=== PATIENT | female | born 1985 | race Caucasian/White ===

== ENCOUNTER 2023-11-26 13:55 | Observation (INO) | payer OTHER ==
[~2023-11-26] VITALS: Ht 157.5 cm; Wt 51.3 kg
[2023-11-26] VITALS (11 sets, daily range): BP systolic 97–126; BP diastolic 59–87; PULSE 82–97; TEMP 97.5–98.5
--- NOTE | 2023-11-26 14:00 | NUR ---
PATIENT DIRECT ADMIT FROM [facility] INTO ROOM 347 WITH KIDNEY STONE AND REPORTED PYELONEPHRITIS. A&O. VSS. PATIENT REPORTS PRESENTING TO THE [facility] TWICE, FRIDAY & FRIDAY BEFORE GOING TO HER PCP TODAY. CONTACTED [facility] FOR RECORDS. PATIENT ALSO REPORTS CARDIAC HX OF MITRAL VALVE PROLAPSE AT 15 Y/O AND SECONDARY CHF WHICH IS NOW WELL MANAGED. STARTED 22 GAUZE IV INTO LEFT HAND TO INT. NPO FOR PENDING SURGERY. HEAD TO TOE ASSESSMENT COMPLETE. ORIENTED TO ROOM. CALL LIGHT IN REACH.
[2023-11-26] MEDS ORDERED: ZOFRAN ODT4 MG PO (14:47)
[2023-11-26] MEDS ORDERED: CEPHALEXIN500 M1 PO (14:47)
[2023-11-26] MEDS ORDERED: PERCOCET 325 MG1 TA2 PO (14:47)
[2023-11-26] MEDS ORDERED: SYNTHROID0.05 MG/TA PO (14:48)
[2023-11-26] MEDS ORDERED: ADDERALL20 MG PO (14:48)
[2023-11-26] MEDS ORDERED: BUSPAR5 MG PO (14:49)
--- NOTE | 2023-11-26 16:30 | NUR ---
AT BEDSIDE. CONSENT OBTAINED. RECORDS FROM [facility] INCLUDING NEGATICE HCG ON CHART. SURGEON AND OR TEAM AWARE OF CARDIAC HX. IV FLUIDS HOOKED UP BUT NOT INFUSING YET. NPO. UA OBTAINED AND SENT TO LAB. PATIENT NOW GOING DOWN TO OR VIA BED WITH AT BEDSIDE.
[2023-11-26 17:15] LABS: COLLECTION METHOD CLEAN CATCH; URINE APPEARANCE Clear (CLEAR/HAZY); URINE BLOOD TRACE-LYSED (NEGATIVE); URINE COLOR Yellow (YELLOW); URINE GLUCOSE Negative (NEGATIVE); URINE KETONE 1+ (NEGATIVE); URINE NITRATE Negative (NEGATIVE); URINE PROTEIN(semi-quant) Negative (NEGATIVE); URINE UROBILINOGEN 0.2 E.U/dL (0.2-1.0)
[2023-11-26 17:32] LABS: SQUAMOUS EPITHELIAL 0-2 /hpf (0-10); URINE BACTERIA None Seen /hpf (NONE SEEN); URINE RBC 0-2 /hpf (0-2)
--- NOTE | 2023-11-26 17:55 | NUR ---
PATIENT BACK IN ROOM. AT BEDSIDE. VSS. NO COMPLAINTS. PATIENT LOOKING AT MENU.
--- NOTE | 2023-11-26 20:54 | NUR ---
This nurse called Dr. Beal at approximately 1855. During bedside shift report, patient had complained of level 3 headache, and requested Acetaminophen, but none was ordered. New order received for Acetaminophen 1000 mg po Q6H PRN. During report, told that patient had CHF, and we needed to stop IV fluids as soon as she was tolerating PO fluids. Clarified with Dr. Beal, ok to stop fluids. Also clarified if he wanted Toradol scheduled Q6H as ordered, or if he wanted PRN, order to change to PRN. All orders updated. Patient assessed at 1935. Alert and oriented, and able to make needs known. Given PRN Acetaminophen for headache as requested. Peripheral INT to left hand. IV fluids stopped. Given IV ABX per orders. Denies SOB and dyspnea. LS CTA. HRR. BSAx4. No edema. Patient is urinating, blood tinged. Has constant feeling of needing to urinate. Encouraged to drink fluids. Voices no further questions, needs, or concerns at this time. In bed with call light within reach.
[2023-11-27] VITALS (7 sets, daily range): BP systolic 88–114; BP diastolic 64–75; PULSE 62–81; TEMP 98.1–98.3
--- NOTE | 2023-11-27 05:27 | NUR ---
Patient has voiced no complaints of pain or discomfort since receiving PRN Acetaminophen. In bed with call light within reach.
--- NOTE | 2023-11-27 08:00 | NUR ---
PATIENT IS A&O. VSS. NO C/O PAIN OR NAUSEA. PATIENT DOES REPORT FREQUENCY WITH STENT. GAVE PRN TYLENOL & LEVSIN. HEAD TO TOE ASSESSMENT WNL. PATIENT ORDERING BREAKFAST. NO OTHER NEEDS AT THIS TIME. CALL LIGHT IN REACH.
[2023-11-27] MEDS ORDERED: ADDERALL10 MG PO (09:49)
[2023-11-27] MEDS ORDERED: ELURYNG VAGINA1 EACH VG (09:50)
--- NOTE | 2023-11-27 09:50 | NUR ---
Initial visit; Patient thanked Hoop Machine Operator for looking in on her and offering God's blessings and as patient stated she is doing well and ready to go home so Hoop Machine Operator offered "Happy New Year," and have a healthy New Year as well. Glenna thanked Hoop Machine Operator.
[2023-11-27] MEDS ORDERED: OMNICEF 300MG300 MG PO (13:03)
[2023-11-27] MEDS ORDERED: FLOMAX 0.40.4 MG/CAP PO (13:04)
[2023-11-27] MEDS ORDERED: PERCOCET 325 MG1 TA2 PO (13:04)
--- NOTE | 2023-11-27 13:20 | NUR ---
PATIENT DISCHARGING HOME VIA AMBULATORY TO PERSONAL VEHICLE WITH . GAVE DISCHARGE INSTRUCTIONS, E-SCRIPTS SENT, AND DISCUSSED OFFICE CALLING PATIENT TO SCHEDULE 2ND SURGERY. PATIENT VERBALIZED UNDERSTANDING. ANSWERED QUESTIONS/CONCERNS. DC'D LEFT HAND IV AND COVERED SITE WITH COBAN. PATIENT IS DRESSED, PACKED AND DISCHARGED.
== END 2023-11-27 13:20 | disposition home or self-care (01) ==
LOC: SURG 13:55
PROVIDERS: ADMIT Urology
DX: N20.1 Calculus of ureter (principal); R50.9 Fever, unspecified
CPT/HCPCS: C1769; C2617; G0378; G0379; J0690; J1100; J1885; J1956; J2405; J2704; J3010; J7030; Q9967